=== PATIENT | male | born 1955 | race Caucasian/White ===

== ENCOUNTER 2019-12-24 16:36 | Emergency (ER) | payer OTHER, MEDICARE ==
[~2019-12-24] VITALS: Ht 172.7 cm; Wt 106.1 kg
[2019-12-24] MEDS ORDERED: SIMVASTATIN80 MG PO (17:00)
[2019-12-24] MEDS ORDERED: PROTONIX40 M2 PO (17:00)
[2019-12-24] MEDS ORDERED: FLOMAX0.4 MG PO (17:00)
[2019-12-24 18:42] VITALS: BP 117/60
== END 2019-12-24 18:42 | disposition home or self-care (01) ==
LOC: M.ERS 16:36
DX: S51.812A Laceration without foreign body of left forearm, initial encounter (principal); E78.5 Hyperlipidemia, unspecified; K21.9 Gastro-esophageal reflux disease without esophagitis; Z88.0 Allergy status to penicillin; Z88.8 Allergy status to other drugs, medicaments and biological substances; W01.118A Fall on same level from slipping, tripping and stumbling with subsequent striking against other sharp object, initial encounter; Y93.89 Activity, other specified; Y92.89 Other specified places as the place of occurrence of the external cause; Y99.8 Other external cause status

== ENCOUNTER 2020-01-08 09:41 | Emergency (ER) | payer OTHER, MEDICARE ==
[~2020-01-08] VITALS: Ht 172.7 cm; Wt 104.3 kg
[~2020-01-08 09:41] MED LIST: FLOMAX0.4 MG PO; PROTONIX40 M2 PO; SIMVASTATIN80 MG PO
[2020-01-08 10:01] VITALS: BP 139/70
== END 2020-01-08 10:02 | disposition home or self-care (01) ==
LOC: M.ERS 09:41
DX: S51.812D Laceration without foreign body of left forearm, subsequent encounter (principal); E78.5 Hyperlipidemia, unspecified; K21.9 Gastro-esophageal reflux disease without esophagitis; Z88.0 Allergy status to penicillin; Z88.8 Allergy status to other drugs, medicaments and biological substances; X58.XXXD Exposure to other specified factors, subsequent encounter